=== PATIENT | male | born 1990 | race Caucasian/White ===

== ENCOUNTER 2020-05-15 17:47 | Emergency (ER) | payer MEDICAID ==
[~2020-05-15] VITALS: Ht 190.5 cm; Wt 101.6 kg
[2020-05-15 18:01] VITALS: BP 120/88
[2020-05-15] MEDS ORDERED: bacitracin 15gm ointment TP ONE (19:10)
[2020-05-15] MEDS ORDERED: TETanus/Pertussis (Acell)/Diphther VAC/PF (Tdap-Adult) 0.5ml syringe IMVAC ONE (19:10)
== END 2020-05-15 20:00 | disposition home or self-care (01) ==
LOC: ER 17:48
DX: S61.102A Unspecified open wound of left thumb with damage to nail, initial encounter (principal); M79.645 Pain in left finger(s); X58.XXXA Exposure to other specified factors, initial encounter; Y93.89 Activity, other specified; Y92.89 Other specified places as the place of occurrence of the external cause; Y99.8 Other external cause status
CPT/HCPCS: 73140; 90471; 90715; 99283

== ENCOUNTER 2024-08-28 10:46 | Emergency (ER) | payer MEDICAID ==
[~2024-08-28] VITALS: Ht 190.5 cm; Wt 99.5 kg
[2024-08-28 11:23] LABS: BASOPHILS % (AUTO) 0.7 % (0-1); EOSINOPHILS # (AUTO) 0.1 X10'3 (0-0.9); EOSINOPHILS % (AUTO) 2.2 % (0-6); HEMATOCRIT 46.1 % (42.0-52.0); HEMOGLOBIN 15.6 g/dl (14.0-17.9); LYMPHOCYTES # (AUTO) 1.8 X10'3 (1.1-4.8); LYMPHOCYTES % (AUTO) 35.6 % (21-51); MEAN CORPUSCULAR HGB CONC 33.9 g/dL (33.0-36.5); MEAN CORPUSCULAR VOLUME 88.4 FL (78-98); MEAN PLATELET VOLUME 8.7 FL (7.4-10.4); MONOCYTES # (AUTO) 0.5 X10'3 (0-0.9); MONOCYTES % (AUTO) 8.9 % (2-12); NEUTROPHILS # (AUTO) 2.7 X10'3 (1.8-7.7); NEUTROPHILS % (AUTO) 52.6 % (42-75); PLATELET COUNT 244 X10'3 (140-440); RED BLOOD COUNT 5.21 X10'6 (4.70-6.10); RED CELL DISTRIBUTION WIDTH 13.8 % (11.5-14.5); WHITE BLOOD COUNT 5.1 X10'3 (4.5-11.0)
[2024-08-28 11:41] LABS: ALANINE AMINOTRANSFERASE 26 U/L (12-78); ALBUMIN/GLOBULIN RATIO 1.1 (1.1-1.5); ALKALINE PHOSPHATASE 82 IU/L (46-116); ANION GAP 6 (8-16); ASPARTATE AMINO TRANSFERASE 14 U/L (10-37); BILIRUBIN,TOTAL 0.4 MG/DL (0.1-1.0); BLOOD UREA NITROGEN 9 MG/DL (7-18); BUN/CREATININE RATIO 10.1 (10.0-20.0); CALCIUM 9.3 MG/DL (8.5-10.1); CHLORIDE 105 MMOL/L (99-107); CREATININE 0.89 MG/DL (0.60-1.10); GLUCOSE 107 MG/DL (70-104); POTASSIUM 4.3 MMOL/L (3.5-5.1); SODIUM 141 MMOL/L (135-145); TOTAL CARBON DIOXIDE 30.5 MMOL/L (24-32); TOTAL PROTEIN 7.7 G/DL (6.4-8.2); eCRCL 140 ML/MIN; eGFR > 90 ML/MIN
[2024-08-28 11:49] LABS: PRO BRAIN NATRIURETIC PEPTIDE < 30 PG/ML (0-125)
[2024-08-28] MEDS: LIDOcaine 2% Viscous 15ml cup MM PRN (12:20)
[2024-08-28] MEDS: mag hydrox/Alum hydrox/simeth 30ml oral suspension PO ONE (12:20)
[2024-08-28 12:21] VITALS: BP 112/60; PULSE 71; RESP 18; O2SAT 98
[2024-08-28] MEDS ORDERED: HYDR-3686 PO (12:30)
[2024-08-28] MEDS ORDERED: OMEP20CA16 PO (12:30)
[2024-08-28 12:36] VITALS: TEMP 97.8
== END 2024-08-28 12:37 | disposition home or self-care (01) ==
LOC: ER 10:46
DX: R07.89 Other chest pain (principal); F41.9 Anxiety disorder, unspecified; K21.9 Gastro-esophageal reflux disease without esophagitis
CPT/HCPCS: 36415; 71045; 80053; 83880; 84484; 85025; 93005; 99285

== ENCOUNTER 2025-01-18 02:04 | Emergency (ER) | payer MEDICAID, OTHER ==
[~2025-01-18] VITALS: Ht 190.5 cm; Wt 99.0 kg
[~2025-01-18 02:04] MED LIST: OMEP20CA16 PO
[2025-01-18 02:14] VITALS: TEMP 97.4
--- NOTE | 2025-01-18 03:55 | Physician Documentation ---
History of Present Illness ~ Chief Complaint: Headache Stated Complaint: NAUSEA,DIZZINESS Time Seen by MD: 03:33 OK to notify your PCP?: Yes Source: patient, family, RN/MD, RN notes reviewed, old records Mode of Arrival: POV Exam Limitations: no limitations HPI 34 year old male with a history of concussions seen in bed 03 presents to the emergency department for complaints of a headache that began at 1200 today. 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 He states he is now feeling nauseous, experiencing photosensitivity, and dizzy. He states that after the incident he iced his head but did not take any medication. He states he had thrown up around [id number] which prompted the patient to go to the emergency department. Medication Reconciliation Allergies: Coded Allergies: No Known Allergies (Unverified , 01/18/25) Scheduled Omeprazole (Omeprazole), 1 CAP PO DAILY Scheduled PRN Promethazine HCl (Promethazine HCl), 1 TAB PO Q6H PRN PRN for nausea/vomiting Past Medical History Past Medical History: No Pertinent History Past Surgical History: noncontributory Alcohol Use: None Drug Use: none Review of Systems All Other Systems at this time: Reviewed and Negative ROS As stated above in the HPI, otherwise all systems are reviewed and negative. Physical Exam Vital Signs: RN Vital Signs have been reviewed: Yes, Temperature: 97.4, Source: [facility], Heart Rate: 77, Respiratory Rate: 16, BP: 126/81, Pulse Oximetry: 97, Weight: 99.000 Oxygen Flow Rate: 0 Pulse Oximetry Reflects: adequate oxygenation Physical Exam General: The patient is well developed, well nourished, nontoxic appearing and is in no acute distress. Skin: [place], warm and dry with no rashes. HEENT: Right occipital soft tissue swelling. Head was normocephalic. Eyes - pupils equal, round, reactive to light and accommodation. Extraocular movements were intact. Conjunctivae were nonicteric. Ears - bilateral tympanic membranes were normal. The mouth and oropharynx were clear with moist mucous membranes. There were no pharyngeal exudates or erythema. Neck: Supple and nontender. There was no jugular venous distention, lymphadenopathy, thyromegaly or masses. Chest: Clear to auscultation bilaterally without wheezes, rales or rhonchi. No accessory muscle use. No dullness to percussion. Heart: Rate regular and rhythmic. S1, S2. No murmurs. Palpation of the chest wall was normal. No rubs or thrills. Abdomen: Soft, nontender and nondistended. Positive bowel sounds. No guarding or rebound. No hepatosplenomegaly or palpable masses. Extremities: No cyanosis, clubbing or edema. The patient moves all extremities. Pulses were equal and symmetric. Neurologic: Cranial nerves II-XII were intact. Sensation was intact to light touch throughout. Motor strength was 5/5 in all four extremities. Deep tendon reflexes were intact in both upper and lower extremities. Psychologic: The patient was oriented to person, place and time. The patient demonstrated appropriate judgement and insight. Progress Results/Orders Reviewed/noted all lab results: Yes Results/Orders Orders - QUANG MATHEWS MD Ct Head (01/18/25 04:00) Completed Orders - QUANG MATHEWS MD Ct Head (01/18/25 04:00) Hydrocodone/Apap 5/325mg Tab (Elmer 5/32 (01/18/25 04:05) Promethazine Tablet (Phenergan Tablet) (01/18/25 04:05) Medications Received in ER Medications (Trade) Dose Ordered Sig/Nico Route PRN Reason Start Time Stop Time Status Last Admin Dose Admin (Elmer 5/325mg tablet) 1 tab ONCE ONCE PO 01/18/25 04:05 01/18/25 04:06 DC 01/18/25 04:24 1 TAB (Phenergan tablet) 25 mg ONCE ONCE PO 01/18/25 04:05 01/18/25 04:06 DC 01/18/25 04:43 25 MG Vital Signs 01/18/25 01/18/25 01/18/25 02:14 02:30 04:28 Temp 97.4 Pulse 77 66 Resp 16 16 B/P (MAP) 126/81 109/75 (86) Pulse Ox 97 100 O2 Flow Rate 0 Re-Evaluation Re-Evaluation : Re-Evaluation: Improved, Unchanged Progress Patient was seen and examined. Patient is given reassurance. Patient was having photophobia nausea headache after head concussion without loss of consciousness. Patient should not received Phenergan as well as Elmer. After a negative CT scan of the head patient was then discharged home with concussion instructions. Patient is medically cleared to return to work. A work note was given today because he is being discharged at 5:00 a.m. in the morning. 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 No prescriptions were written other than Phenergan for nausea EKG/XRAY/CT/US/VASC/MRI CT : Impression EXAM: CT CT HEAD INDICATION: concussion TECHNIQUE: CT of the head without intravenous contrast. Radiation Dose : 1. Head: CT Dose: CTDI volume is 65 mGy. Dose-length product is 1187 mGy*cm The dose indicators for CT are the volume Computed Tomography (CT) Dose Index (CTDIvol) and the Dose Length Product (DLP), and are measured in units of mGy and mGy-cm, respectively. These indicators are not patient dose, but values generated from the CT scanner acquisition factors. The report includes radiation exposure data for exposures received during this examination. COMPARISON: None FINDINGS: There is no evidence of acute intracranial hemorrhage, extra-axial collection, mass effect, midline shift, herniation or hydrocephalus. The ventricles, sulci and cisterns are age appropriate. The wolf-white differentiation is intact. The visualized paranasal sinuses and mastoid air cells are clear. The surrounding soft tissues and osseous structures are unremarkable. IMPRESSION: No acute intracranial abnormality. Radiation optimization: All CT scans at this facility use at least one of these dose optimization techniques: automated exposure control mA and/or kV adjustm ent per patient size (includes targeted exams where dose is matched to clinical indication) or iterative reconstruction. Electronically Signed by:ALAN ESPINOZA MD Date & Time: 01/18/25 043 Medical Decision Making Additional info obtained from: old records Differential Dx:Considerations: Include: HERBERT-Migraine, Close head injuyr, Hemorrhage-Epidural, Hemorrhage-Intracerebral, Hemorrhage-Subarachnoid, Hemorrhage-Subdural, Post-traumtic, Other Departure Time of Disposition: 04:05 Disposition: 01 HOME / SELF CARE / HOMELESS Impression: Primary Impression: Concussion Qualified Codes: S06.0X0A - Concussion without loss of consciousness, initial encounter Additional Impression: Occipitial scalp contusion, right Condition: Stable Discharge Instructions: Concussion, Adult Departure Forms: Excuse form Work or School Excused From: Work Excuse beginning now through the following date: Jan 18, 2025 May Return but still avoid physical Activity from now until: Jan 18, 2025 Referrals: NO PRIMARY CARE PROVIDER (PCP) Prescriptions Promethazine HCl (Promethazine HCl) 25 Mg Tablet 1 TAB PO Q6H PRN PRN for nausea/vomiting for 7 Days, #28 TAB Prov: QUANG MATHEWS MD 01/18/25 Education Educated: Patient, Family Educated regarding: diagnosis, treatment, prognosis Signature Scribe Signature: Scribed for Quang Mathews MD by Juan Alberto Massey . 01/18/25 04:08 Attestation: The note accurately reflects work and decisions made by me.Quang Mathews MD 01/18/25 03:55 QUANG MATHEWS MD Jan 18, 2025 03:55 JUAN ALBERTO LEES Jan 18, 2025 04:08
[2025-01-18] MEDS ORDERED: PROM25TA14 PO (04:04)
[2025-01-18] MEDS: HYDROcodone/acetaminophen 5mg/325mg tablet PO ONE (04:24)
[2025-01-18 04:28] VITALS: BP 109/75; PULSE 66; RESP 16; O2SAT 100
--- NOTE | 2025-01-18 04:33 | RADIOLOGY REPORT ---
EXAM: CT CT HEAD INDICATION: concussion TECHNIQUE: CT of the head without intravenous contrast. Radiation Dose : 1. Head: CT Dose: CTDI volume is 65 mGy. Dose-length product is 1187 mGy*cm The dose indicators for CT are the volume Computed Tomography (CT) Dose Index (CTDIvol) and the Dose Length Product (DLP), and are measured in units of mGy and mGy-cm, respectively. These indicators are not patient dose, but values generated from the CT scanner acquisition factors. The report includes radiation exposure data for exposures received during this examination. COMPARISON: None FINDINGS: There is no evidence of acute intracranial hemorrhage, extra-axial collection, mass effect, midline s hift, herniation or hydrocephalus. The ventricles, sulci and cisterns are age appropriate. The wolf-white differentiation is intact. The visualized paranasal sinuses and mastoid air cells are clear. The surrounding soft tissues and osseous structures are unremarkable. IMPRESSION: No acute intracranial abnormality. Radiation optimization: All CT scans at this facility use at least one of these dose optimization tiffany hniques: automated exposure control mA and/or kV adjustment per patient size (includes targeted exam s where dose is matched to clinical indication) or iterative reconstruction.
== END 2025-01-18 04:57 | disposition home or self-care (01) ==
LOC: ER 02:04
DX: S06.0X0A Concussion without loss of consciousness, initial encounter (principal); R11.0 Nausea; R42 Dizziness and giddiness; W22.8XXA Striking against or struck by other objects, initial encounter; Y93.89 Activity, other specified; Y92.89 Other specified places as the place of occurrence of the external cause; Y99.8 Other external cause status
CPT/HCPCS: 70450; 99284; Q0169